=== PATIENT | female | born 1950 | race Caucasian/White ===

== ENCOUNTER 2024-04-23 07:57 | Outpatient (REF) | payer MEDICARE, SELFPAY ==
--- NOTE | ~2024-04-23 | FL_ITS ---
EXAMINATION: XR FLUOROSCOPY UPPER GI WITH AIR CLINICAL INFORMATION: History of placement of gastric band. Intermittent epigastric discomfort. COMPARISON: None TECHNIQUE: Fluoroscopic air contrast upper GI examination was performed utilizing standard techniques with thin and thick barium and effervescent granules. Numerous spot images were obtained. FINDINGS: Dual and single contrast images of the esophagus demonstrate normal caliber, contour, and mucosal pattern. Mild to moderate cricopharyngeal achalasia is present. No evidence of stricture, mass, or ulcerations identified. Esophageal peristalsis was normal. A very small hiatal hernia is present. No significant gastroesophageal reflux was seen during the course of the examination and on reflux views. Dual contrast and single contrast images of the stomach demonstrated a normal contour. A gastric band is present. The phi angle measures 41 degrees. The gastric band is causing a moderate degree stricture. Stomach demonstrates no masses, mucosal ulcerations, or ulcers. Contrast freely passed into the gastric antrum and duodenal bulb without delay. Single and air-contrast images of the duodenal bulb demonstrate no abnormality. The duodenal sweep has a normal appearance, course, and mucosal fold appearance. The imaged proximal jejunum has a normal fold pattern and caliber. FLUOROSCOPY TIME: 5 minutes 17 seconds Number of Spot Images: 8 Number of Cine: 15 DOSE AREA PRODUCT: 4282 uGy-m2 (microgray-meter squared) FL/FL upper GI w air IMPRESSION: 1. Mild to moderate cricopharyngeal achalasia. 2. Small type I hiatal hernia. 3. Status post placement of gastric band. Phi angle measures 41 degrees. No evidence of band slippage. Deep and band is causing a moderate band induced stricture below the gastric pouch. 4. Normal-appearing stomach. 5. Mildly patulous appearing esophagus, likely owing to the moderate obstruction at the level of the band. This procedure was performed by Alonso Renee PA-C, and supervised by Dr. Santos Electronically signed by: Danilo Santos MD 04/24/2024 10:35 AM EDT
== END 2024-04-23 07:58 | disposition home or self-care (01) ==
LOC: HO.XRAY 07:57
PROVIDERS: PCP Physician Assistant Medical; Visit Provider Surgery
DX: K59.09 Other constipation (principal)
CPT/HCPCS: 74246

== ENCOUNTER → 2024-04-23 08:00 | Outpatient (BNV) | payer MEDICARE, SELFPAY | PROVIDERS: PCP Physician Assistant Medical; Visit Provider Radiology Diagnostic Radiology | DX: R10.13 Epigastric pain (principal) | CPT/HCPCS: 74246 ==